=== PATIENT | male | born 1955 | race Caucasian/White ===

== ENCOUNTER 2019-06-13 04:58 | Observation (INO) | payer OTHER, SELFPAY ==
[2019-06-13] VITALS (41 sets, daily range): BP systolic 112–147; BP diastolic 63–88; PULSE 46–78; RESP 16–18; TEMP 36.2–36.7; O2SAT 92–99
--- NOTE | 2019-06-13 05:37 | ED.GENADUL_ITS ---
Discharge Plan Disposition Patient Disposition: [facility] INPATIENT Discharge Details Chief Complaint: Dizzy/Sync Clinical Impression: Dizziness, Chest pressure, Nausea Primary Care Provider: Gayla,Local ED Provider: Garfield Preciado Home Meds and New Rx's Prescriptions: No Action lisinopril 5 mg Tablet RF: 0 tamsulosin [Flomax] 0.4 mg Capsule 0.4 mg PO QHS RF: 0 allopurinol 300 mg Tablet RF: 0 finasteride 5 mg Tablet 5 mg PO DAILY RF: 0 fenofibrate nanocrystallized [Tricor] 48 mg Tablet 48 mg PO DAILY RF: 0 Medical Decision Making 5:45 --64-year-old male with history of hypertension and hyperlipidemia, here with dizziness, nausea and also with associated mild chest heaviness. Patient is saturating 94% on room air with no respiratory distress. Blood pressure is normal. He is bradycardic in the 50s. Patient states he has a history of bradycardia noted in the past. Considered arrhythmia. ECG was reviewed and interpreted by me: Sinus bradycardia 55 bpm, normal axis, nonspecific QRS widening with QRS duration of 112, QTc 413. Consider ACS. Will check troponin. Low risk for PE. Will check ddimer. Patient does seem to have mild proptosis as well as some pretibial mild edema. Consider thyroid dysfunction. Will obtain troponin. Dizziness does have characteristics consistent with vertigo including worsening with certain movements including bending over and nausea. He has no nystagmus on exam. He has not had any recent headache. No focal neurologic deficits on exam -including no dysmetria and no dysdiadochokinesia. I will initiate treatment with Antivert. 6:35 -- I obtained OSH records from [facility] discharge summary 10/31 noting gastroenteritis. Labs reviewed: ddimer neg. Initial trop neg. TSH nl. 7:00 -- Patient reassessed and still having sxs. Nausea persistent. Will give zofran IV. -- cxr reviewed and interpreted by me: negative for acute cardiopulm disease -- HINTS testing performed: continues to have no nystagmus, neg skew, normal head impulse test. Head impulse finding concern. Plan to obtain MRI brain. Spoke with radiology and no availability until noon. Plan to admit. I spoke with Dr. Martinez who will admit patient. HPI General Date/Time Provider Initiated Documentation: 06/13/19 05:09 . HPI Narrative: 64-year-old male with history of hypertension, hyperlipidemia, prostate enlargement, gout, presents with chief complaint of dizziness. Patient notes that over the past 1 week he has had intermittent dizziness. Dizziness has been mild and occurring in brief episodes until last night around 11 PM when he experienced more severe symptoms. Patient notes feeling off balance and having to hold onto the wall. He also felt as though he might pass out at times. He has associated severe nausea. He also notes some heaviness that is mild in his chest. At 2 AM he woke up diaphoretic. Patient also notes recent loose bowel movement. Patient states that in the past he has been told that his ECG is not normal and that he has had low heart rate. Related Data Home Medications Medication Instructions Recorded Confirmed allopurinol 06/13/19 fenofibrate nanocrystallized 48 mg PO DAILY 06/13/19 06/13/19 [Tricor] finasteride 5 mg PO DAILY 06/13/19 06/13/19 lisinopril 06/13/19 tamsulosin [Flomax] 0.4 mg PO QHS 06/13/19 06/13/19 Allergies Allergy/AdvReac Type Severity Reaction Status Date / Time No Known Allergies Allergy Unverified 06/13/19 05:10 General Stated Complaint: Dizzy/Sync ARSLAN: 2 Review of Systems All systems reviewed & are unremarkable except as noted in HPI and below Constitutional Constitutional: Denies fever(s) and Denies headache(s) ENT Ears, Nose, Mouth, and Throat: Reports dizziness and Denies headache(s) Cardiovascular Cardiovascular: Reports as per HPI, Denies leg edema and Denies dyspnea Respiratory Respiratory: Denies dyspnea Gastrointestinal Gastrointestinal: Reports as per HPI Neurologic Neurologic: Reports dizziness, Denies headache(s), Denies focal weakness, Denies sensory deficit and Denies paresthesias [facility] Medical History Gout (Chronic) HTN (hypertension) (Chronic) Hyperlipemia (Acute) Prostate enlargement (Acute) Social History Smoking/Tobacco Use Status: Former Tobacco Use Alcohol Intake: current Alcohol Intake frequency: holidays/special occasions only Drug use: Never Substance use type: does not use Do you feel safe at home: Yes Do you feel safe in your relationship?: Yes Exam Const General: cooperative and no acute distress [facility] Head: normocephalic Mouth: moist mucous membranes Eyes Conjunctivae: normal conjunctivae Sclera: normal sclerae Pupils: PERRL and accommodation normal EOM: EOM intact bilaterally and No nystagmus Other: proptosis Neck Neck: trachea midline and supple Resp Auscultation: clear to auscultation bilaterally, no rales, no rhonchi and no wheezes Cardio Jugular venous pressure: no JVD Rate: regular rate and not tachycardic Rhythm: regular rhythm Heart Sounds: S1 normal, S2 normal, no gallops, no murmurs and no rubs GI Palpation: soft, not firm, no guarding, no masses, not rigid and nontender Skin General skin exam: no rashes or lesions noted Neuro General: alert, awake, oriented x3 and tone normal Cranial Nerves: CN's II-XI intact bilaterally and no nystagmus Cognition: normal cognition Speech: speech normal Motor: muscle tone normal throughout and strength 5/5 throughout Sensory Exam: no sensory deficits noted Coordination: [id number] test normal, iimk-[id number] test normal and rapid alternating movement UE normal (nl) Extrem General: no calf tenderness and no edema Psych Appearance: grossly normal Mental Status: mental status grossly normal Speech and Movement: speech and movement normal Course Vital Signs Vital signs: Vital Signs Temperature 36.4 C L 06/13/19 05:08 Pulse 56 L 06/13/19 05:08 Respiratory Rate 16 06/13/19 05:08 Blood Pressure 139/71 06/13/19 05:08 Pulse Oximetry 94 L 06/13/19 05:08 Temperature 36.4 C L 06/13/19 05:08 Temperature Source Tympanic 06/13/19 05:08 Pulse 56 L 06/13/19 05:08 Respiratory Rate 16 06/13/19 05:08 Respiratory Effort Non-Labored 06/13/19 05:17 Respiratory Depth Normal 06/13/19 05:17 Respiratory Pattern Normal 06/13/19 05:17 Blood Pressure 139/71 06/13/19 05:08 Pulse Oximetry 94 L 06/13/19 05:08 Oxygen Delivery Method Room Air 06/13/19 05:08 Oxygen Flow Rate 0 06/13/19 05:08 Pain Level 8 06/13/19 05:08 Comment 06/13/19 05:08
[2019-06-13] MEDS: Meclizine 25 MG TAB PO ×2 (05:48→21:06)
[2019-06-13 05:51] LABS: Abs Immature Grans 0.01 k/cumm (0.0-0.09); Absolute Basophil Count 0.03 k/cumm (0.0-0.2); Absolute Eosinophil Count 0.14 k/cumm (0.0-0.7); Absolute Lymphocyte Count 0.76 k/cumm (1.2-3.4); Absolute Neutrophil Count 3.33 k/cumm (1.2-6.7); Basophils % 0.6; HCT 41.4 % (40.0-50.0); HGB 14.2 g/dL (13.5-17.5); Immature Grans % 0.2; Lymphocytes % 16.3; Mean Corp. HGB Concentration 34.3 g/dL (32.0-36.0); Mean Corpuscular Volume 84.7 fL (80-95); Mean Platelet Volume 11.8 fL (8.0-11.0); Monocytes % 8.6; Neutrophils % 71.3; Platelet Count 146 x1000/uL (130-400); RBC 4.89 m/cumm (4.50-6.00); RBC Distribution Width 12.7 % (11.8-14.1); White Blood Cell Count 4.67 k/cumm (4.4-10.8)
[2019-06-13] MEDS: Normal Saline 500 ML IV (05:51)
[2019-06-13 06:07] LABS: ALT 47 U/L (16-63); AST 20 U/L (15-37); Alkaline Phosphatase 71 U/L (46-116); Anion Gap 8.6 mmol/L (3-11); BUN 27 mg/dL (7-18); Bilirubin, Total 0.3 mg/dL (0.2-1.0); CO2 29.4 mmol/L (21.0-32.0); CREATININE 1.14 mg/dL (0.70-1.30); Calcium 9.5 mg/dL (8.5-10.1); Chloride 105 mmol/L (98-107); Glucose 173 mg/dL (70-100); Magnesium 2.1 mg/dL (1.8-2.4); Potassium 4.1 mmol/L (3.5-5.1); Sodium 143 mmol/L (136-145); Total Protein 7.7 g/dL (6.4-8.2)
[2019-06-13 06:12] LABS: Troponin I < 0.05 ng/mL (0.00-0.06)
[2019-06-13 06:13] LABS: TSH (W/Ref FT4) 2.21 uIU/mL (0.36-3.74)
[2019-06-13 06:21] LABS: D-Dimer 355 ng/mlFEU (<500)
--- NOTE | 2019-06-13 06:57 | DI.RAD_ITS ---
EXAM: XR CHEST 2V PA LATERAL INDICATION: chest heaviness. COMPARISON: No exams were available for comparison TECHNIQUE: 2D digital imaging was performed. FINDINGS: Heart size and pulmonary vasculature are within normal limits. The lungs are clear. No effusions or pneumothoraces are identified. Degenerative changes are seen in the spine. IMPRESSION: No acute pulmonary process.
[2019-06-13] MEDS: Ondansetron 4 MG/2 ML VIAL IVP ×3 (07:37→17:12)
--- NOTE | 2019-06-13 07:58 | DI.VRAD_ITS ---
PROCEDURE INFORMATION: Exam: XR Chest, 2 Views Exam date and time: 06/13/2019 7:25 AM Clinical history: 64 years old, male; Other: Chest heaviness TECHNIQUE: Imaging protocol: XR of the chest Views: 2 views. (3 images total) COMPARISON: No relevant prior studies available. FINDINGS: Lungs: Unremarkable. No consolidation. Pleural space: Unremarkable. No pleural effusion. No pneumothorax. Heart/Mediastinum: Unremarkable. No cardiomegaly. Vasculature: The aorta is tortuous. Bones/joints: Degenerative changes involve the spine. A chronic fracture involves the left third rib. IMPRESSION: No evidence for acute pulmonary disease. Dictated and Authenticated by: Bonilla Bush MD. Ordering:LOREN Merrill MD
--- NOTE | 2019-06-13 08:11 | DI.CT_ITS ---
EXAM: CT HEAD WO CLINICAL HISTORY: dizzy COMPARISON: No exams were available for comparison FINDINGS: There is normal esquivel-white matter differentiation. The ventricles are intact. The basilar cisterns are patent. No acute intracranial hemorrhage, midline shift, or mass effect is present. The calvari um is intact. No fluid levels are seen in the visualized paranasal sinuses. The mastoid air cells a re well pneumatized. IMPRESSION: No acute intracranial process. The findings were discussed with the emergency department on the date of the examination.
[2019-06-13] MEDS: Metoclopramide 10 MG/2 ML VIAL IVP (08:47)
[2019-06-13] MEDS: LORazepam 2 MG/ML VIAL 1 MG IVP (08:47)
--- NOTE | 2019-06-13 10:00 | DI.MRI_ITS ---
EXAM: MR ANGIO BRAIN WO CLINICAL HISTORY: dizzy, consider posterior lesion. TECHNIQUE: Multiplanar multisequence MRI was performed. COMPARISON: MR BRAIN WO from 06/13/2019 FINDINGS: The cranial internal carotid arteries are unremarkable. No evidence of aneurysm, occlusion, or signi ficant stenosis. The anterior cerebral arteries are unremarkable. No evidence of aneurysm, occlusion, or significant stenosis. The middle cerebral arteries are unremarkable. No evidence of aneurysm, occlusion, or significant st enosis. The posterior cerebral arteries are unremarkable. No evidence of aneurysm, occlusion, or significant stenosis. The basilar artery is unremarkable. No evidence of aneurysm, occlusion or significant stenosis. IMPRESSION: No evidence of acute arterial pathology.
--- NOTE | 2019-06-13 10:10 | DI.MRI_ITS ---
EXAM: MR ANGIO NECK WO CLINICAL HISTORY: dizzy, consider posterior lesion. TECHNIQUE: Multiplanar multisequence MRI was performed. COMPARISON: No exams were available for comparison FINDINGS: There is patient motion artifact present. The common carotid arteries are unremarkable. There is no evidence of significant stenosis or occlus ion. The external carotid arteries are unremarkable. There is no evidence of significant stenosis or occl usion. At the origins of both internal carotid arteries there is 30-40 percent narrowing present. The vertebral arteries are unremarkable. There is no evidence of significant stenosis or occlusion. The basilar artery is unremarkable. There is no evidence of occlusion, significant stenosis, or aneu rysm. IMPRESSION: 30-40 percent narrowing at the origins of both internal carotid arteries. The findings of the MRI of the brain and MRI angiography of the head and neck were discussed with the emergency department on the date of the examination.
--- NOTE | 2019-06-13 10:20 | DI.MRI_ITS ---
EXAM: MR BRAIN WO CLINICAL HISTORY: dizzy. TECHNIQUE: Multiplanar multisequence MRI was performed. COMPARISON: No exams were available for comparison FINDINGS: Despite multiple attempts, there is patient motion artifact present. There is mild global cerebral a trophy. There is scattered areas of T2 hyperintensity on the T2 and FLAIR images most consistent wit h small vessel ischemic disease. Diffusion-weighted images show no evidence of an acute infarct. No intracranial hemorrhage is present. The ventricles are intact. The basilar cisterns are patent. T here is no acute midline shift or mass effect. IMPRESSION: Age-related cerebral atrophy and small vessel ischemic disease. No evidence of an acute infarct.
[2019-06-13 10:37] LABS: Troponin I < 0.05 ng/mL (0.00-0.06)
[2019-06-13] MEDS: Normal Saline 1,000 ML 125 ML IV ×2 (11:27→19:33)
[2019-06-13] MEDS: Normal Saline Flush 10 ML SYR IVP (11:27)
--- NOTE | 2019-06-13 14:32 | CHAPLAIN ---
Flash was sitting up in bed when I visited. 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 His other experiences in [place], and [facility], have been pleasant he said. He hasn't let family or friends in [facility] know yet that he is in the hospital and said he will wait until he knows more about what's going on.
[2019-06-13 14:35] LABS: Troponin I < 0.05 ng/mL (0.00-0.06)
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
--- NOTE | 2019-06-13 17:30 | PT.INIE ---
Date of service: 06/13/19 Time of Service: 10:35 PT Notes npatient Physical Therapy Evaluation Date: 06/13/2019 Referring Doctor: Fabian Martinez MD PT Orders: PT CONSULT: Vertigo. Please perform [place]os[place]-Hallpike and assess for potential BPPV Precautions: Fall. Standard. Activity as tolerated. Patient Profile/Admitting Diagnosis: Patient is a 64 year old male admitted to the medical/surgical unit with diagnoses of dizziness, hyperlipidemia, and prostate enlargement. PMHX: Medical History Gout (Chronic) HTN (hypertension) (Chronic) Hyperlipemia (Acute) Prostate enlargement (Acute) Social History/Home Situation: Patient lives in [place] with in a home that has nine steps to enter. 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 He is independent with all aspects of ADLs without the need for an assitive ambulatory device nor adaptive equipment. Equipment Owned/DME: None Subjective: Patient states he is feeling fine if he does not move. he states that it feels like he is on a boat that moves side to side when he does move. He reports his dizziness increases with positional changes. He is agreeable to PT evaluation this morning. Objective: General Observation: Patient is seen laying supine in bed with HOB elevated. He is wearing a alarm security or surveillance monitor, and has an IV in R UE. Mental Status: Alert and oriented x 4 Pain: 0/10 Bed Mobility/Transfers: Rolling Independent Supine to sit Independent Sit to supineIndependent Sit to standIndependent Stand to sitIndependent Bed to chairIndependent Chair to bedIndependent Gait: Patient ambulated 10?-12' using reciprocal gait, no assistive device, supervision, and exhibited no gait deviations other than decreased gait speed due to sensation Balance: Static Sitting: Normal Dynamic Sitting: Normal Static Standing: Normal Dynamic Standing: Good Special Tests: Mobility Limitations Standardized Measure [facility] AM-PAC 6 clicks Basic Mobility Inpatient Short Form: Raw Score: 24 CMS Score: 0% Sharp-Otilio test: Negative signifying excellent C1-C2 stability Alar Ligament Test: Negative signifying excellent C1-C2 stability Moosic Hallpike Maneuver: Patient reported reproduction of symptoms with R Moosic-Hallpike Maneuver. A left torsional upbeating fatiguing nystagmus was observed which persisted until about a minute or so after client was sat back up in sitting. Findings indicate a R posterior canalithiasis. Informed Consent/Education: Patient instructed in purpose of PT consult and plan of care. Jordyn?s Maneuver: Performed twice on right side. Assessment: Patient is a 64 year old male presenting with signs and symptoms consistent with benign paroxysmal positional vertigo with R posterior canalithiasis. . His cervical spine was cleared by PT. A Will-Hallpike Maneuver was performed which exhibited an torsional upbeating nystagmus, with worsening of symptoms bilaterally but worse on R side. A right Jordyn maneuver was performed twice and the patient reported some relief. Symptoms reported included nausea and a sensation of being on a boat and moving side to side. Patient is more cautious of movement and has limited his mobility performance since admission to this hospotal. Patient will benefit from skilled services as inpatient and may need to continue as oout-patient for complete resolution of symptoms. Patient presents with clinical signs and symptoms consistent with current/admitting diagnoses that have resulted to mobility limitations, gait instability, generalized weakness, and impairment of motor control as demonstrated by the following impairment level findings: 1. Decreased activity tolerance 2. Mild balance deficits related to vertigo Impairments are contributing to the following functional limitations: 1. Increase completion time for mobility ADL performance 2. Increased fall risk Patient is assessed as a 11911 moderate complexity based on the following: History: Patient is a 64 year old male admitted to the medical/surgical unit with diagnoses of dizziness, hyperlipidemia, and prostate enlargement. Examination: Demonstrable impairment in strength, balance, and range of motion with underlying impairments and functional limitations as documented above Presentation:Evolving Decision Makin moderate complexity Goals: Goals X1 week 1. Independent with self-canalith repositioning techniques 2. Good static and dynamic standing balance/tolerance 3. Independent with ambulation over level surfaces using no assistive device for at least 500 feet Plan of Care/Treatment Plan: 1-2x/day, 7 days/week x 1 week. Plan of care has been reviewed with the HISTOLOGICAL ILLUSTRATOR providing the service under Physical Therapy direction. Initiate Physical Therapy intervention for strengthening, bed mobility, transfers, gait, stairs, balance training, use of assistive device. DISCHARGE RECOMMENDATIONS: Patient is to be discharged to home after all of the above goals are met, and he is medically stable. He may continue to benefit from vestibular rehabilitation on an out-patient basis. TREATMENT CODE/TIME: 79768 x 25 minutes beginning at 11:35 AM. Thank you very much for this referral. Sebas Mabry [facility] In consultation with: Ana Rosa Tate PT, DPT, CLT [facility]
[2019-06-13 18:57] LABS: Troponin I < 0.05 ng/mL (0.00-0.06)
--- NOTE | 2019-06-13 19:00 | PT.INTREAT ---
Date of service: 06/13/19 Time of Service: 16:07 PT Notes Inpatient Physical Therapy Treatment Note [facility] Date: 06/13/2019 PRECAUTIONS:Fall. Standard. Activity as tolerated. SUBJECTIVE: Patient continues to report being dizzy but the nausea has subsided as of this afternoon. He is agreeable to doing another set of Ron maneuvers this afternoon with this PT. OBJECTIVE: Fatiguing L torsional upbeating nystagmus of less intensity and shorter duration compared to this afternoon. PAIN: 0/10 BED MOBILITY/TRANSFERS Rolling L/R: I Supine-sit: I Sit-supine: I Sit-stand: S Stand-sit: S Bed-Chair: SBA Chair-bed: SBA GAIT Assistive Device: None Weight bearing: FWB Assist: SBA Distance: 12 feet from left edge of bed to the right edge of bed now with better control compared to this morning. Deviation: Unremarkable except for decreased gait velocity. ASSESSMENT: Patient received 2 repetitions of the R ron maneuver for this session. PLAN: Continue with Ron maneuver tomorrow morning if still symptomatic TREATMENT CODE/TIME: 97852 x 22 minutes beginning at 16:07 AM.
[2019-06-13] MEDS: Allopurinol 100 MG TAB 200 MG PO (21:06)
[2019-06-13] MEDS: Tamsulosin 0.4 MG CAPCR PO (21:06)
[2019-06-13] MEDS: Lisinopril 5 MG TAB PO (21:06)
[2019-06-13] MEDS: Fenofibrate, Micronized 48 MG TAB PO (21:06)
[2019-06-13] MEDS: Finasteride 5 MG TAB PO (21:06)
[2019-06-14 00:03] VITALS: BP 126/70; PULSE 50; RESP 18; TEMP 36.6; O2SAT 93
[2019-06-14] MEDS: Normal Saline 1,000 ML 125 ML IV (03:15)
[2019-06-14 03:45] VITALS: BP 125/61; PULSE 54; RESP 17; TEMP 36.8; O2SAT 98
[2019-06-14 07:00] VITALS: BP 127/74; PULSE 59; RESP 16; TEMP 36.4; O2SAT 98
[2019-06-14 07:18] LABS: Absolute Basophil Count 0.02 k/cumm (0.0-0.2); Absolute Eosinophil Count 0.27 k/cumm (0.0-0.7); Absolute Lymphocyte Count 1.31 k/cumm (1.2-3.4); Absolute Monocyte Count 0.47 k/cumm (0.11-0.7); Basophils % 0.4; Eosinophils % 5.4; HCT 39.2 % (40.0-50.0); Lymphocytes % 26.4; Mean Corp. HGB Concentration 33.2 g/dL (32.0-36.0); Mean Corpuscular Hemoglobin 28.7 pg (27.0-33.0); Mean Corpuscular Volume 86.5 fL (80-95); Mean Platelet Volume 11.8 fL (8.0-11.0); Monocytes % 9.5; Neutrophils % 58.3; Platelet Count 153 x1000/uL (130-400); RBC 4.53 m/cumm (4.50-6.00); RBC Distribution Width 12.9 % (11.8-14.1); White Blood Cell Count 4.97 k/cumm (4.4-10.8)
[2019-06-14 07:25] VITALS: PULSE 50
[2019-06-14 07:58] LABS: Anion Gap 5.7 mmol/L (3-11); BUN 13 mg/dL (7-18); CO2 30.3 mmol/L (21.0-32.0); CREATININE 1.24 mg/dL (0.70-1.30); Calcium 8.8 mg/dL (8.5-10.1); Chloride 110 mmol/L (98-107); Estimated GFR 58.51 (mL/min/1.73m2); Glucose 116 mg/dL (70-100); Magnesium 1.9 mg/dL (1.8-2.4); Potassium 3.6 mmol/L (3.5-5.1); Sodium 146 mmol/L (136-145)
[2019-06-14] MEDS: Enoxaparin 40 MG/0.4 ML SYR SC (08:22)
[2019-06-14] MEDS: Meclizine 25 MG TAB PO ×2 (08:22→13:27)
--- NOTE | 2019-06-14 10:53 | PDOC.CMIN ---
Care Management Initial Assess REASON FOR HOSPITALIZATION:: Vertigo, nausea, chest pressure PAST MEDICAL HISTORY/PAST SURGICAL HISTORY:: Gout, HTN, Hyperlipidemia, Prostate enlargement PREVIOUS FUNCTIONAL STATUS/SOCIAL/FAMILY SUPPORTS:: Flash resides in [place], [place] with his , Minoo. 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 ADVANCE DIRECTIVES:: None on file. Has patient been provided with information about the portal?: No Did the patient sign up for the portal?: No CODE STATUS:: Full Code INSURANCE COVERAGE / FINANCIAL ISSUES:: Medicare, [facility] CURRENT HOME/COMMUNITY SERVICES/EQUIPMENT:: No current services or equipment. PRIMARY CARE PHYSICIAN:: No local: CM to confirm PCP. POTENTIAL DISCHARGE NEEDS:: Follow up appointment with PCP, outpatient MPI stress test. PATIENT/FAMILY EDUCATION NEEDS:: Review discharge instructions, discuss Ask Me Three. ANTICIPATED BARRIERS TO DISCHARGE:: None identified. TRANSPORTATION:: Via private vehicle with his . PLAN:: Flash will return home when ready per MD. Anticipate if cleared medically, he will have a scheduled outpatient stress test with local providers in [place] where he resides. He will transport via private vehicle with his , Minoo.
[2019-06-14] MEDS: Potassium Chloride 20 MEQ TABCR 40 MEQ PO (10:59)
[2019-06-14] MEDS: Magnesium Oxide 400 MG TAB PO (10:59)
--- NOTE | 2019-06-14 12:12 | W.PM.DS.N ---
Date of service: 06/14/19 Time of Service: 12:49 DS: Diagnosis Discharge Diagnosis (1) Dizziness: Status: Acute (2) HTN (hypertension): Status: Chronic (3) Hyperlipemia: Status: Acute (4) Prostate enlargement: Status: Acute (5) Gout: Status: Chronic (6) DVT prophylaxis: Status: Acute (7) Discharge planning issues: Status: Acute Discharge Plan Disposition Patient Disposition: HOME Condition: Improving Discharge Details Chief Complaint: Dizzy/Sync Clinical Impression: Dizziness, Chest pressure, Nausea Reason For Visit: VERTIGO, NAUSEA, CHEST PRESSURE Admit Date/Time: 06/13/19 08:15 Admit Provider: Fabian Martinez Attending Provider: Fabian Martinez [facility]: Garfield Preciado Hospital Course Hospital Course: Mr. Piña is a very pleasant 64 year old man with a past medical history significant for hypertension, hyperlipidemia, BPH, gout, obstructive sleep apnea with CPAP. He presented to the emergency department yesterday on 06/13/19 with reports of dizziness/feeling like he was on a boat and nausea which began around 11 am the day prior. He also reported a brief episode of chest pressure prior to his arrival. In the ED, he had a EKG which showed sinus bradycardia with a heart rate of 55 bpm, normal axis, nonspecific QRS widening with QRS duration of 112, QTc 413. He had a chest x-ray which was negative for an acute process. He went on to have a head CT which was negative for an acute process. He had a brain MRI which was negative for an infarct, he had a brain MRA which was negative. MRA of the neck showed 30 to 40% stenosis to his bilateral internal carotid arteries proximally. His troponins were negative x3. His d-dimer was normal at 355. He was admitted to the [facility] floor for further observation and management. Physical therapy was consulted. His exam was consistent with BPPV. PT preformed Jordyn Maneuvers, he was started on meclizine for vertigo and zofran for nausea. His symptoms improved overnight. He ambulated with physical therapy in the halls. He was no longer dizzy. His nausea improved. He had no further episodes of chest pain or pressure. The patient is discharged from the hospital today. He is in town for business and will return to the [facility] with plans to return home to [place] tomorrow. He will be provided with Zofran and Meclizine at the time for discharge. He is advised not to drive if he has any dizziness. He should go to the closest emergency department if he has any further symptoms. Due to his report of chest pressure, he was referred for an exercise treadmill stress test, however, he was unable to ambulate due to dizziness. There was no availability for chemical stress testing at this critical access hospital during the time that the patient was here. He should have a stress test as an outpatient for follow up. Also consider echocardiogram. He is scheduled to follow up with his PCP in 2 days, on 06/16/19. It is recommended that he have a cardiac stress test in follow up. He may benefit from ongoing PT if he has ongoing symptoms. Home Meds and New Rx's Prescriptions: New meclizine 25 mg Tablet 25 mg PO TID PRNQty: 12 RF: 0 ondansetron HCl [Zofran] 4 mg tablet 4 mg PO Q8H PRN (Reason: nausea and vomiting) Qty: 14 RF: 0 Continued lisinopril 5 mg Tablet 5 mg PO DAILY RF: 0 tamsulosin [Flomax] 0.4 mg Capsule 0.4 mg PO QHS RF: 0 finasteride 5 mg Tablet 5 mg PO DAILY RF: 0 fenofibrate nanocrystallized [Tricor] 48 mg Tablet 48 mg PO DAILY RF: 0 allopurinol 100 mg Tablet 200 mg PO DAILY RF: 0 Discharge Instructions Instructions: Vertigo (DC) Additional Instructions: If you have any further dizziness or chest pressure, go to the closest ED. You should have a cardiac stress test as an outpatient. Do not drive if you feel dizzy. You will be given Meclizine to take if you feel dizzy. You will be given Zofran to take if you are nauseated. If you continue to have vertigo symptoms, you may benefit from Physical Therapy as an outpatient. Take care! Stand Alone Forms: Nursing Discharge Form Referrals: Michelle Fournier [Other] - 06/16/19 9:00 am Activity:: Activity as Tolerated Equipment/Supplies:: No Equipment Needed Diet:: As Tolerated Discharge Orders Discharge Orders: Discharge Order (Routine); Ordered 06/14/19 Ordered By: Lakshmi Montero DS: Summary Status at Discharge Functional status at discharge: independent ambulation Overall status at discharge: patient is progressing back to baseline Mental Status: mental status grossly normal Speech and Movement: speech and movement normal Mood: congruent mood Affect: normal affect Exam Narrative Exam Narrative: General: Middle aged man, pleasant and cooperative. laying in bed with head elevated, in NAD. Answers questions appropriately. HEENT: normocephalic, atraumatic, pupils equal, round and reactive to light, EOMI, no nystagmus noted, mucous membranes moist. Neck: supple, no JVD. Cardiovascular: heart has regular rate and rhythm, no murmur appreciated, bradycardic in the 50s. Respiratory: respirations even and unlabored, lung sounds clear bilaterally. GI: normoactive bowel sounds, abdomen soft, nontender on palpation, no masses appreciated. Extremities: no clubbing, cyanosis or edema. Psych Mental Status: mental status grossly normal Speech and Movement: speech and movement normal Mood: congruent mood Affect: normal affect DS: Data Vitals/I&O Vitals and I&O: Vital Signs Temperature 36.4 C L 06/14/19 07:00 Temperature Source Tympanic 06/14/19 07:00 Pulse 50 L 06/14/19 07:25 Pulse Rhythm Regular 06/14/19 08:24 Pulse 54 L 06/13/19 10:20 Respiratory Rate 16 06/14/19 07:00 Respiratory Effort Non-Labored 06/14/19 08:24 Respiratory Depth Normal 06/14/19 08:24 Respiratory Pattern Normal 06/14/19 08:24 Blood Pressure 127/74 06/14/19 07:00 Blood Pressure Mean 83 06/13/19 10:20 Pulse Oximetry 98 06/14/19 07:00 Oxygen Delivery Method Room Air 06/14/19 07:00 Oxygen Flow Rate 0 06/14/19 07:00 Pain Level 0 06/14/19 07:00 Comment 06/13/19 05:08 Intake & Output 06/13/19 06/14/19 06/14/19 23:59 11:59 23:59 Intake Total 1240 / 1980 1322.5 / 1322.5 Output Total 800 / 1300 Balance 440 / 680 1322.5 / 1322.5 Intake: IV 1000 / 1500 962.5 / 962.5 Oral 240 / 480 360 / 360 Output: Urine 800 / 1300 Other: Urine Color Yellow Urine Appearance Clear Clear Voiding Methods Toilet Toilet Data Completed and Pending Completed studies during hospitalization [Text1]: 06/13/19: EXAM: CT HEAD WO CLINICAL HISTORY: dizzy COMPARISON: No exams were available for comparison FINDINGS: There is normal esquivel-white matter differentiation. The ventricles are intact. The basilar cisterns are patent. No acute intracranial hemorrhage, midline shift, or mass effect is present. The calvarium is intact. No fluid levels are seen in the visualized paranasal sinuses. The mastoid air cells are well pneumatized. IMPRESSION: No acute intracranial process. The findings were discussed with the emergency department on the date of the examination. EXAM: MR BRAIN WO CLINICAL HISTORY: dizzy. TECHNIQUE: Multiplanar multisequence MRI was performed. COMPARISON: No exams were available for comparison FINDINGS: Despite multiple attempts, there is patient motion artifact present. There is mild global cerebral atrophy. There is scattered areas of T2 hyperintensity on the T2 and FLAIR images most consistent with small vessel ischemic disease. Diffusion-weighted images show no evidence of an acute infarct. No intracranial hemorrhage is present. The ventricles are intact. The basilar cisterns are patent. There is no acute midline shift or mass effect. IMPRESSION: Age-related cerebral atrophy and small vessel ischemic disease. No evidence of an acute infarct. EXAM: MR ANGIO BRAIN WO CLINICAL HISTORY: dizzy, consider posterior lesion. TECHNIQUE: Multiplanar multisequence MRI was performed. COMPARISON: MR BRAIN WO from 06/13/2019 FINDINGS: The cranial internal carotid arteries are unremarkable. No evidence of aneurysm, occlusion, or significant stenosis. The anterior cerebral arteries are unremarkable. No evidence of aneurysm, occlusion, or significant stenosis. The middle cerebral arteries are unremarkable. No evidence of aneurysm, occlusion, or significant stenosis. The posterior cerebral arteries are unremarkable. No evidence of aneurysm, occlusion, or significant stenosis. The basilar artery is unremarkable. No evidence of aneurysm, occlusion or significant stenosis. IMPRESSION: No evidence of acute arterial pathology. EXAM: MR ANGIO NECK WO CLINICAL HISTORY: dizzy, consider posterior lesion. TECHNIQUE: Multiplanar multisequence MRI was performed. COMPARISON: No exams were available for comparison FINDINGS: There is patient motion artifact present. The common carotid arteries are unremarkable. There is no evidence of significant stenosis or occlusion. The external carotid arteries are unremarkable. There is no evidence of significant stenosis or occlusion. At the origins of both internal carotid arteries there is 30-40 percent narrowing present. The vertebral arteries are unremarkable. There is no evidence of significant stenosis or occlusion. The basilar artery is unremarkable. There is no evidence of occlusion, significant stenosis, or aneurysm. IMPRESSION: 30-40 percent narrowing at the origins of both internal carotid arteries. The findings of the MRI of the brain and MRI angiography of the head and neck were discussed with the emergency department on the date of the examination. EXAM: XR CHEST 2V PA LATERAL INDICATION: chest heaviness. COMPARISON: No exams were available for comparison TECHNIQUE: 2D digital imaging was performed. FINDINGS: Heart size and pulmonary vasculature are within normal limits. The lungs are clear. No effusions or pneumothoraces are identified. Degenerative changes are seen in the spine. IMPRESSION: No acute pulmonary process. Labs on day of discharge: Labs from last 24 hours 06/14/19 06/14/19 06/13/19 06:30 06:30 18:20 WBC 4.97 RBC 4.53 Hgb 13.0 L Hct 39.2 L MCV 86.5 MCH 28.7 MCHC 33.2 RDW 12.9 Plt Count 153 MPV 11.8 H Immature Gran % 0.0 Neutrophils % 58.3 Lymphocytes % 26.4 Monocytes % 9.5 Eosinophils % 5.4 Basophils % 0.4 Absolute Neutrophils 2.90 Absolute Lymphocytes 1.31 Absolute Monocytes 0.47 Absolute Eosinophils 0.27 Absolute Basophils 0.02 Sodium 146 H Potassium 3.6 Chloride 110 H Carbon Dioxide 30.3 Anion Gap 5.7 BUN 13 D Creatinine 1.24 Estimated GFR/1.73 m2 58.51 Glucose 116 H Calcium 8.8 Magnesium 1.9 Troponin I < 0.05 06/13/19 14:02 WBC RBC Hgb Hct MCV MCH MCHC RDW Plt Count MPV Immature Gran % Neutrophils % Lymphocytes % Monocytes % Eosinophils % Basophils % Absolute Neutrophils Absolute Lymphocytes Absolute Monocytes Absolute Eosinophils Absolute Basophils Sodium Potassium Chloride Carbon Dioxide Anion Gap BUN Creatinine Estimated GFR/1.73 m2 Glucose Calcium Magnesium Troponin I < 0.05 [facility] Medical History Gout (Chronic) HTN (hypertension) (Chronic) Hyperlipemia (Acute) Prostate enlargement (Acute) Social History Smoking/Tobacco Use Status: Former Tobacco Use Alcohol Intake: current Alcohol Intake frequency: holidays/special occasions only Drug use: Never Substance use type: does not use Do you feel safe at home: Yes Do you feel safe in your relationship?: Yes
[2019-06-14 14:20] VITALS: PULSE 55
--- NOTE | 2019-06-14 15:47 | PT.INDS ---
Date of service: 06/14/19 Time of Service: 10:05 PT Notes Inpatient Physical Therapy Discharge Summary Dates: 06/14/2019 Dates of Service: 06/13/2019 Referring Doctor: Fabian Martinez MD PT Orders: PT CONSULT: Vertigo. Please perform Will-Hallpike and assess for potential BPPV Precautions: Fall. Standard. Activity as tolerated. Patient Profile/Admitting Diagnosis: Patient is a 64-year-old male admitted to the medical/surgical unit with diagnoses of dizziness, hyperlipidemia, and prostate enlargement. PMHX: Medical History Gout (Chronic) HTN (hypertension) (Chronic) Hyperlipemia (Acute) Prostate enlargement (Acute) Social History/Home Situation: Patient lives in [place] with in a home that has nine steps to enter. 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 He is independent with all aspects of ADLs without the need for an assitive ambulatory device nor adaptive equipment. Equipment Owned/DME: None Subjective: Patient states he is feeling significantly better. He states he has more control of his movements now. He reports no exacerbation of symptoms after ambulation activity. He asked whether it is okay for him to drive long distance with his condition to which this PT replied that the MD can answer and give clearance for. Objective: General Observation: Patient is seen laying supine in bed with HOB elevated. 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 Mental Status: Alert and oriented x 4 Pain: 0/10 Bed Mobility/Transfers: Rolling Independent Supine to sit Independent Sit to supine Independent Sit to stand Independent Stand to sit Independent Bed to chair Independent Chair to bed Independent Gait: Patient ambulated 150' using reciprocal gait, no assistive device, supervision, and exhibited no gait deviations other than decreased gait speed. Balance: Static Sitting: Normal Dynamic Sitting: Normal Static Standing: Normal Dynamic Standing: Good Assessment: Patient is a 64 year old male presenting with signs and symptoms consistent with benign paroxysmal positional vertigo with R posterior canalithiasis. Patient presented with a L torsional upbeating nystagmus with the right Will-hallpike and was provided with R Jordyn maneuver twice in the morning and twice in the afternoon yesterday. He had abatement of symptoms that started yesterda afternoon and reported no nausea and dizziness as of this morning. Patient now minimally presents with clinical signs and symptoms consistent with current/admitting diagnoses that have resulted to mobility limitations, gait instability, generalized weakness, and impairment of motor control as demonstrated by the following impairment level findings: 1. Mild balance deficits related to vertigo Impairments are contributing to the following functional limitations: 1. Increased completion time for mobility ADL performance Goals: Goals X1 week 1. Independent with self-canalith repositioning techniques MET 2. Good static and dynamic standing balance/tolerance MET 3. Independent with ambulation over level surfaces using no assistive device for at least 500 feet NOT MET DISCHARGE RECOMMENDATIONS: Patient is to be discharged to home after all of the above goals are met, and he is medically stable. He may continue to benefit from vestibular rehabilitation on an out-patient basis. TREATMENT CODE/TIME: 78120 x 25 minutes beginning at 10:05 AM. Thank you very much for this referral. Ana Rosa Tate PT, DPT, CLT [facility]
== END 2019-06-14 15:20 | disposition home or self-care (01) ==
LOC: ER 08:56 → MS 10:29
PROVIDERS: Admitting Provider Internal Medicine; Emergency Provider Student in an Organized Health Care Education/Training Program; Visit Provider Internal Medicine
DX: H81.10 Benign paroxysmal vertigo, unspecified ear (principal); I10 Essential (primary) hypertension; E78.5 Hyperlipidemia, unspecified; N40.0 Benign prostatic hyperplasia without lower urinary tract symptoms; M10.9 Gout, unspecified; G47.33 Obstructive sleep apnea (adult) (pediatric)
CPT/HCPCS: 36415; 70544; 70547; 80048; 80053; 93005; 96361; 96374; 96375; 97162; 97530; 99219; 99239; 99285; J1650; 70450; 70551; 71046; 83735; 84443; 84484; 85025; 85379; 93010; 99217; G0378; J2060; J2405; J2765; J8597